=== PATIENT | male | born 1965 | race African-American/Black ===

== ENCOUNTER 2017-08-27 23:08 | Emergency (ER) | payer MEDICAID ==
[~2017-08-27] VITALS: Ht 175.3 cm; Wt 86.4 kg
[2017-08-28] MEDS ORDERED: MORPHINE SULFATE 4 MG/ML SYRINGE IM ONE (02:00)
[2017-08-28] MEDS ORDERED: ONDANSETRON HCL 4 MG TABLET PO ONE (02:00)
[2017-08-28] MEDS ORDERED: TraMADol HCL 50 MG TABLET PO ONE (02:45)
[2017-08-28 02:46] VITALS: BP 160/93
== END 2017-08-28 03:21 | disposition home or self-care (01) ==
LOC: EMS 23:08
DX: S83.511A Sprain of anterior cruciate ligament of right knee, initial encounter (principal); I10 Essential (primary) hypertension; X50.0XXA Overexertion from strenuous movement or load, initial encounter; Y93.B9 Activity, other involving muscle strengthening exercises; Y92.89 Other specified places as the place of occurrence of the external cause; Y99.8 Other external cause status
CPT/HCPCS: 29505; 73562; 96372; 99284; J2270; Q0162

== ENCOUNTER 2017-08-31 22:54 | Emergency (ER) | payer MEDICAID ==
[~2017-08-31] VITALS: Ht 175.3 cm; Wt 86.4 kg
[2017-09-01 01:32] VITALS: BP 143/92
== END 2017-09-01 02:12 | disposition home or self-care (01) ==
LOC: EMS 22:55
DX: M25.561 Pain in right knee (principal); I10 Essential (primary) hypertension; F17.210 Nicotine dependence, cigarettes, uncomplicated; Z76.0 Encounter for issue of repeat prescription
CPT/HCPCS: 99283